=== PATIENT | female | born 1960 | race Caucasian/White ===

== ENCOUNTER → 2017-01-09 | Outpatient (CLI) | payer BC, OTHER ==
--- NOTE | 2017-01-09 11:46 | REP ---
MRI STUDY OF THE LEFT ANKLE WITHOUT CONTRAST: HISTORY: Left ankle pain. Peroneus brevis pain tendon injury in 2015. Comparison radiographs are from July 05, 2015 and August 02, 2015. Comparison MRI study of the left ankle from another facility is dated September 27, 2015. TECHNIQUE: Axial coronal and sagittal imaging planes utilized. T1 and T2-weighted scans are obtained along [id number]-[id number] images with and without fat saturation. MRI FINDINGS: Cortical and medullary bone signal intensity are normal. There is no evidence of tarsal coalition. No significant joint effusion is seen. The Achilles tendon is normal in course, caliber and signal intensity. Plantar fascia are smooth. Medially, tibialis posterior, flexor digitorum, and flexor hallucis longus tendons appear intact. Laterally, the peroneus longus and brevis tendons appear intact as well. No extensor tendinopathy is appreciated. There is no evidence of osteochondral defect lesion in the talar dome or tibial plafond. There is minimal subcortical cyst formation in the neck of the talus. No evidence of ligament disruption is appreciated. The extraosseous soft tissues show no evidence of cyst or mass. IMPRESSION: No MR evidence of tendinopathy seen. Otherwise unremarkable MRI study of the left ankle without contrast. Signed by Adam Lepe MD 01/09/2017 06:18 P
== END ==
LOC: M RAD 09:00
PROVIDERS: ATTEND Podiatrist
DX: S86.312D Strain of muscle(s) and tendon(s) of peroneal muscle group at lower leg level, left leg, subsequent encounter (principal); S86.112S Strain of other muscle(s) and tendon(s) of posterior muscle group at lower leg level, left leg, sequela; X58.XXXD Exposure to other specified factors, subsequent encounter; X58.XXXS Exposure to other specified factors, sequela; Y92.9 Unspecified place or not applicable; Y93.9 Activity, unspecified; Y99.9 Unspecified external cause status